=== PATIENT | female | born 1995 | race Caucasian/White ===

== ENCOUNTER 2016-06-12 22:20 | Emergency (ER) | payer OTHER ==
[~2016-06-12] VITALS: Ht 157.5 cm; Wt 72.6 kg
[~2016-06-12 22:20] MED LIST: AMOXICILLIN500 M2 PO; BUPROPION XL150 MG PO; CLARITHROMYCIN500 M1 PO; CYCLOBENZAPRINE10 M1 PO; IBUPROFEN800 M1 PO; NEXIUM40 M1 PO
--- NOTE | 2016-06-12 23:55 | ED MVC/FALL/TRAUMA COMPLAINT ---
History of Present Illness General Chief Complaint: Low Back Pain/Injury Stated Complaint: "BACK PAIN S/P FALL"-LOC Source: patient, family, old records Exam Limitations: no limitations Vital Signs & Intake/Output Vital Signs & Intake/Output Vital Signs Date Time Temp Pulse Resp B/P Pulse O2 O2 Flow FiO2 Ox Delivery Rate 06/13 0100 97.7 81 18 133/82 99 Room Air 06/12 2227 98.1 92 18 124/74 100 Room Air ED Intake and Output 06/13 0000 06/12 1200 Intake Total Output Total Balance Patient 160 lb Weight Allergies Coded Allergies: No Known Allergies (10/21/15) Reconcile Medications Amoxicillin 500 MG CAPSULE 1,000 MG PO BID H.PYLORI (Reported) Bupropion HCl (Bupropion XL) 150 MG TAB.ER.24H 150 MG PO DAILY DEPRESSION ( Reported) Clarithromycin 500 MG TABLET 1 TAB PO BID H.PYLORI (Reported) Cyclobenzaprine HCl 10 MG TABLET 1 TAB PO 4 TIMES/DAY PRN MUSCLE SPASM Cyclobenzaprine HCl 5 MG TABLET 1 TAB PO TIDPRN PRN PAIN Esomeprazole (Nexium) 40 MG CAPSULE.DR 40 MG PO DAILY H.PYLORI (Reported) Hydrocodone/Acetaminophen ([place] 5-325 Tablet) 5 MG-325 MG TABLET 1 TAB PO Q4- 6 PRN PRN BREAKTHROUGH PAIN Ibuprofen 800 MG TABLET 1 TAB PO TID PRN PAIN Triage Note: PT TO ED FOR R SIDED BACK PAIN AFTER SLIPPING DOWN 1 STAIR AND HITTING BACK ON STAIR. NO LOC, DID NOT HIT HEAD, NO GROSS TRAUMA OR DEFORMITY NOTED, TOOK NAPROXEN 550 MG E [employer]. Triage Nurses Notes Reviewed? yes Onset: Abrupt Duration: hour(s): (2), constant Timing: recent history Severity: moderate Severity Numbers: 6 Injuries/Fall Location: back Method of Injury: fall Loss of Consciousness: no loss of consciousness Modifying Factors: Improves With: rest. Worsens With: movement, palpation. Associated Symptoms: DENIES LMP (ages 10-50): now : No Patient currently breastfeeds: No HPI: There is a 21-year-old female presents to emergency room status post fall a 2 hours prior to arrival when she slipped on a step landing directly on the right side of her back against the step. She did not hit her head there is no loss of consciousness she now presents complaining of aching throbbing sharp pain described as spasming as well 6 out of 10 to a right lower back. The pain is nonradiating she's been able to ambulate without complaint however states the pain is worse with change in position and movement palpation. No urinary or bowel incontinence no abdominal pain no upper back neck leg or arm pain she has taken naproxen prior to arrival without improvement (NOEL KOENIG) Past History Travel History Traveled to [place] past 21 day No Medical History Any Pertinent Medical History? see below for history Neurological: NONE EENT: NONE Cardiovascular: NONE Respiratory: NONE Gastrointestinal: GERD, h.pylori Hepatic: NONE Renal: NONE Musculoskeletal: NONE Psychiatric: depression Endocrine: NONE Blood Disorders: NONE Cancer(s): NONE Surgical History Surgical History: N Psychosocial History What is your primary language Hungarian Tobacco Use: Never used ETOH Use: denies use Illicit Drug Use: denies illicit drug use Family History Hx Contributory? No (NOEL KOENIG) Review of Systems Review of Systems Constitutional: Reports: see HPI. All Other Systems: Reviewed and Negative Comments Review of systems: See HPI, All other systems negative. Constitutional, no chills no fever, no malaise HEENT: No visual changes no sore throat no congestion Cardiovascular: No chest pain , no palpitation Skin, no rashes, no change in skin Respiratory: No dyspnea no cough no sputum GI: No nausea no vomiting, no diarrhea, : No dysuria Muscle skeletal: No joint pain, no joint swelling, back pain, no neck pain, Neurologic: No numbness no headache Psych: No stress Heme/endocrine: No bruising no bleeding Immunology: No lymphadenopathy (NOEL KOENIG) Physical Exam Physical Exam General Appearance: well developed/nourished, no apparent distress, alert, awake Comments: Well-developed well-nourished person in no acute distress HEENT: Normal EENT exam; PERRL, EOMI, HEAD is atraumatic. moist mucous membranes. Neck: Supple, no midline or paracervical tenderness, normal range of motion without pain or tenderness Back: There is right sided paralumbar muscle tenderness palpation, no CVA tenderness. Full range of motion there is no ecchymosis or signs of trauma Cardiovascular: Regular rate and rhythms no murmurs rubs Respiratory: No respiratory distress. Patient speaking in full complete sentences. Breath sounds clear to auscultation bilaterally: NO W/R/R Abdomen: Soft, nontender nondistended Extremity: No edema, full range of motion of extremities, normal and equal pulses bilaterally, 5 out of 5 strength noted to bilateral upper and lower extremities positive straight leg raise to the right lower extremity there is no pain with pelvic compression full range motion of the knee foot or ankle Neuro: Alert oriented x3, motor sensory normal. There were no obvious focal neurologic abnormalities. Skin: No appreciable rash on exposed skin, skin is warm and dry. Psych: Mood and affect is normal, memory and judgment is normal. Core Measures ACS in differential dx? No Severe Sepsis Present: No Septic Shock Present: No (NOEL KOENIG) Progress Differential Diagnosis: C/T/L spine injury, ext injury, pelvis injury, spinal cord injury Plan of Care: Orders Procedure Date/time Status URINE 06/13 25 Complete Laboratory Tests 06/13/16 0043: Urine Test NEGATIVE X-ray ordered patient medicated with Toradol 60MG IM Flexeril 5 mg by mouth (NOEL KOENIG) Diagnostic Imaging: Viewed by Me: Radiology Read. Discussed w/RAD: Radiology Read. Hand-Off Endorsed To: JENN PACE MD Endorsed Time: 99 Pending: Xray (NOEL KOENIG) Radiology Impression: LS XRAY... NEG. Comments: PATIENT: POLY BRENNAN PRESENT AGE: 21 PATIENT ACCOUNT NO: [id number] : 93 LOCATION: [facility] [place] ORDERING PHYSICIAN: NOEL GILES SERVICE DATE: 06/13/16 EXAM TYPE: RAD - XRY-LUMBOSACRAL SPINE AP & LAT EXAMINATION: XR LUMBOSACRAL SPINE CLINICAL INFORMATION: Low back pain, fall COMPARISON: None TECHNIQUE: AP and lateral views of the lumbosacral spine were obtained. FINDINGS: There is anatomic alignment of the lumbar vertebral bodies and posterior elements. Vertebral body heights and intervertebral disc spaces are maintained. No acute fracture is seen. The sacroiliac joints are intact. IMPRESSION: No acute findings identified. DICTATED BY: ANETTE CALDERON MD DATE/TIME DICTATED:06/13/16210 NET APPLICATIONS DEVELOPER:JANAE DATE/TIME TRANSCRIBED:06/13/16210 CONFIDENTIAL, DO NOT COPY WITHOUT APPROPRIATE AUTHORIZATION. <Electronically signed in Other Vendor System> SIGNED BY: ANETTE CALDERON MD 06/13/16 0217 (SANJEEV PONCE,JENN Bonner) Departure Departure Disposition: HOME OR SELF CARE Condition: Stable Clinical Impression Primary Impression: Low back strain Referrals: PATRICIO PONCE,RICHIE Mcgrath (PCP/Family) Additional Instructions: Rest, interchange ice and heat. Flexeril as directed [place] for breakthrough pain use caution as this may make you drowsy. Follow-up with her primary care physician this week. Ibuprofen 800 mg every 8 hours, return at anytime sooner with any concerns Departure Forms: Customer Survey General Discharge Information Prescriptions: Current Visit Scripts Cyclobenzaprine HCl 1 TAB PO TIDPRN PRN PAIN #12 TAB Hydrocodone/Acetaminophen ([place] 5-325 Tablet) 1 TAB PO Q4-6 PRN PRN BREAKTHROUGH PAIN #10 TAB (NOEL KOENIG) PA/GYN PHYSICIAN Co-Sign Statement Statement: ED Attending supervision documentation- [X] I saw and evaluated the patient. I have also reviewed all the pertinent lab results and diagnostic results. I agree with the findings and the plan of care as documented in the PA's/GYN PHYSICIAN's documentation. para lumbar muscle spasm without bony tenderness..... xray is benign... pt safe for discharge. close follow up advised. [] I have reviewed the ED Record and agree with the PA's/GYN PHYSICIAN's documentation. [] Additions or exceptions (if any) to the PAs/GYN PHYSICIAN's note and plan are summarized below: [] (SANJEEV PONCE,JENN Bonner)
[2016-06-13] MEDS ORDERED: NORCO 5-325 TA1 EACH PO (00:46)
[2016-06-13] MEDS ORDERED: CYCLOBENZAPRINE5 M2 PO (00:46)
--- NOTE | 2016-06-13 02:17 | RADIOLOGY REPORT ---
EXAMINATION: XR LUMBOSACRAL SPINE CLINICAL INFORMATION: Low back pain, fall COMPARISON: None TECHNIQUE: AP and lateral views of the lumbosacral spine were obtained. FINDINGS: There is anatomic alignment of the lumbar vertebral bodies and posterior elements. Vertebral body heights and intervertebral disc spaces are maintained. No acute fracture is seen. The sacroiliac joints are intact. IMPRESSION: No acute findings identified.
[2016-06-13 02:25] VITALS: BP 130/84
== END 2016-06-13 02:28 ==
LOC: ERH 22:20
DX: S39.012A Strain of muscle, fascia and tendon of lower back, initial encounter (principal); W10.9XXA Fall (on) (from) unspecified stairs and steps, initial encounter
CPT/HCPCS: 72100; 81025; 96372; J1885